=== PATIENT | female | born 1950 | race Caucasian/White ===

== ENCOUNTER 2020-02-10 19:33 | Emergency (ER) | payer MEDICARE, SELFPAY ==
[2020-02-10 19:44] VITALS: BP 175/72; PULSE 89; RESP 16; TEMP 37.1; O2SAT 98
--- NOTE | 2020-02-10 19:44 | PC.NURSE ---
in br to obtain ua spec.
--- NOTE | 2020-02-10 19:48 | ED.GENADULT ---
HPI - General Adult General Chief complaint: Urogenital-Female Stated complaint: UTI Time Seen by Provider: 02/10/20 19:52 Source: patient and RN notes reviewed Mode of arrival: ambulatory Limitations: no limitations History of Present Illness HPI narrative: 69-year-old female presents with urinary complaints for 1 day. Dysuria consist of burning, frequency, and urgency.? No treatment.? History of UTI's , last antibiotic treatment 3 months ago. Denies fever or chills. No significant pelvic pain. No vaginal discharge.? No concerns for STDs. Exacerbating factors urinating.? Denies hematuria or vaginal bleeding. Denies being , LMP, hysterectomy. No flank pain. Denies nausea, vomiting, and abdominal pain.? Tolerating liquids well.? Remains active. The patient reports she have not been diagnosed with COVID-19. The patient reports she is not waiting for the results of a COVID-19 lab test. The patient reports she do not have fever, chills, weakness, or fatigue. The patient reports she do not have a new or worsening cough or shortness of breath. Denies chest pain. The patient reports she do not have any rhinorrhea, congestion, sore throat, and diarrhea. Denies recent traveling. Denies concerns for COVID-19 or exposures been home with limited outdoor exposure except for essential household needs and return home. At this time, patient is not suspected of having COVID-19. Some parts of this dictation were generated by voice recognition software and may contain typographical and/or grammatical inaccuracies. Related Data Home Medications Medication Instructions Recorded Confirmed amitriptyline 02/10/20 amlodipine 02/10/20 pfvcqilmel-oyibzyaztjgvd-aztg cap 02/10/20 famotidine 02/10/20 hydrocodone-acetaminophen tablet 02/10/20 metoprolol tartrate 02/10/20 ondansetron 02/10/20 pantoprazole PO 02/10/20 ropinirole mg 02/10/20 triamterene-hydrochlorothiazid cap 02/10/20 Allergies Allergy/AdvReac Type Severity Reaction Status Date / Time Penicillins Allergy Unknown RASH Verified 08/01/12 07:51 codeine AdvReac Unknown NAUSEA Verified 08/01/12 07:51 Review of Systems Review of Systems: Narrative: CONSTITUTIONAL: Denies fever, chills, sweats. EYES: Denies visual changes, redness, discharge. ENT: Denies rhinorrhea, congestion, sore throat, otalgia. CARDIOVASCULAR: Denies chest pain, palpitations, edema. RESPIRATORY: Denies dyspnea, wheezing, cough. GASTROINTESTINAL: Denies abdominal pain, nausea, vomiting, diarrhea. GENITOURINARY: Complains of dysuria (burning, frequency, and urgency). Denies hematuria, abnormal discharge. SKIN: Denies rash or itching. MUSCULOSKELETAL: Denies acute back pain, joint pain, or myalgia. NEUROLOGIC: Denies numbness or focal weakness. PSYCHIATRIC: Denies anxiety or depression. All systems reviewed & are unremarkable except as noted in HPI and below. [facility] Past Medical History Medical History (Updated 02/11/20 @ 00:00 by [facility]) Bunion of great toe of right foot History of gastroesophageal reflux (GERD) Hypercholesteremia Hypertension Migraine Restless leg syndrome UTI (urinary tract infection) Surgical History Surgical History (Updated 02/10/20 @ 20:05 by SUNDAR Purvis) History of hysterectomy History of rotator cuff surgery LT History of shoulder surgery Bilateral, RT muscle release History of tubal ligation Family History Family History (Updated 02/10/20 @ 20:12 by SUNDAR Purvis) Father , COPD No problems noted. Mother , Mesothelioma No problems noted. Social History Social History (Updated 02/10/20 @ 20:06 by SUNDAR Purvis) Smoking status: Never smoker Second hand tobacco smoke exposure: No Alcohol intake: current Alcohol use details: Rum and coke Substance use: never Living arrangements: with family Occupation/Education: retired Gender identity (if verbalized
== END 2020-02-10 20:12 | disposition home or self-care (01) ==
PROVIDERS: Emergency Provider Nurse Practitioner Family
DX: N39.0 Urinary tract infection, site not specified (principal); K21.9 Gastro-esophageal reflux disease without esophagitis; E78.00 Pure hypercholesterolemia, unspecified; I10 Essential (primary) hypertension; G25.81 Restless legs syndrome
CPT/HCPCS: 81003; 87077; 87086; 87088; 87186; 99213; G0463